=== PATIENT | male | born 1955 | race Caucasian/White ===

== ENCOUNTER 2018-09-12 18:24 | Emergency (ER) | payer OTHER ==
[~2018-09-12] VITALS: Ht 172.7 cm; Wt 80.3 kg
[2018-09-12 18:46] VITALS: BP 140/106
--- NOTE | 2018-09-12 18:52 | NUR ---
Patient ambulated to bed 12. RN evaluating patient at bedside.
[2018-09-12 19:22] LABS: BASOPHILS % (AUTO) 0.7 % (0.0-2.0); EOSINOPHILS # (AUTO) 0.3 K/uL (0-0.4); EOSINOPHILS % (AUTO) 6.7 % (0.0-4.0); HEMOGLOBIN 15.5 g/dL (12.0-18.0); LYMPHOCYTES # (AUTO) 1.9 K/uL (2.0-11.5); LYMPHOCYTES % (AUTO) 38.5 % (20.5-51.1); MEAN CORPUSCULAR HEMOGLOBIN 32 pg (27-31); MEAN CORPUSCULAR HGB CONC 35 g/dL (33-37); MEAN CORPUSCULAR VOLUME 91.4 fL (80-94); MONOCYTES # (AUTO) 0.5 K/uL (0.8-1.0); MONOCYTES % (AUTO) 9.9 % (1.7-9.3); NEUTROPHILS # (AUTO) 2.2 K/uL (1.8-7.7); NEUTROPHILS % (AUTO) 44.2 % (42.2-75.2); PLATELET COUNT (AUTO) 158 K/uL (140-450); RED BLOOD CELL COUNT(AUTO) 4.92 MIL/uL (4.20-6.10); RED CELL DISTRIBUTION WIDTH 13.1 % (11.6-13.7)
--- NOTE | 2018-09-12 19:34 | NUR ---
PATIENT PRESENTS TO ED WITH C/O ESCALONA AND DIZZINESS X 1 WEEK. PATIENT STATES HE TOOK HIS BP AT HOME, SAW THAT IT WAS HIGH 160'S SBP, AND TOOK FAMILY'S HBP MEDICATION. PATIENT BP NOW IS 132/95. PATIENT TOOK NORVASC 5MG AND HCTZ 25MG. PATIENT BP IS MUCH IMPROVED, PATIENT STATES ESCALONA IS 3/10 NOW WAS 10/10 AT HOME . PT DENIES N/V/D; SKIN IS PINK/WARM/DRY; AAOX4 WITH EVEN AND STEADY GAIT; LUNGS CLEAR BL; HR EVEN AND REGULAR; PT DENIES ANY FEVER, CP, SOB, OR COUGH AT THIS TIME; PATIENT STATES PAIN OF 3/10 AT THIS TIME; VSS; PATIENT POSITIONED FOR COMFORT; HOB ELEVATED; BEDRAILS UP X2; BED DOWN. ER MD MADE AWARE OF PT STATUS.
[2018-09-12] MEDS ORDERED: KETOROLAC 30 MG/ML VIAL IVP ONE (19:35)
[2018-09-12] MEDS ORDERED: PROCHLORPERAZINE 10 MG/2 ML VIAL IVP ONE (19:35)
[2018-09-12] MEDS ORDERED: NACL 0.9% 1,000 ML IV ONE (19:35)
[2018-09-12] MEDS ORDERED: KETOROLAC 15 MG/ML VIAL IVP ONE (19:35)
[2018-09-12 19:36] LABS: ANION GAP 10.9 (8-16); CARBON DIOXIDE 26.7 mmol/L (21-32); CREATININE 0.9 mg/dL (0.7-1.3); POTASSIUM 3.6 mmol/L (3.5-5.1)
[2018-09-12 19:40] LABS: PROTHROMBIN TIME 9.2 secs (10.8-13.4)
[2018-09-12 19:43] LABS: TOTAL BILIRUBIN 0.6 mg/dL (0.0-1.0)
[2018-09-12] MEDS ORDERED: ASPIRIN 81 MG TAB.CHEW PO ONE (19:55)
--- NOTE | 2018-09-12 20:25 | NUR ---
PATIENT EXPRESSES HE DOES NOTE WANT TO BE ADMITTED, DR SALAS MADE AWARE, WILL TALK TO PATIENT ABOUT RISK ABOUT LEAVING AMA
[2018-09-12 20:34] LABS: APPEARANCE,URINE CLEAR (CLEAR); BILIRUBIN,URINE NEGATIVE (NEGATIVE); BLOOD, URINE NEGATIVE (NEGATIVE); COLOR,URINE YELLOW (YELLOW); LEUKOCYTE ESTERASE ,URINE NEGATIVE (NEGATIVE); NITRITE, URINE NEGATIVE (NEGATIVE); UGLUCOSE NEGATIVE (NEGATIVE)
--- NOTE | 2018-09-12 20:34 | NUR ---
DR SALAS AT BEDSIDE CONSULTING PATIENT REGARDING RISKE OF LEAVING AMA
--- NOTE | 2018-09-12 20:47 | NUR ---
IV removed, catheter intact and site benign. Applied folded 4x4 gauze and tape to stop bleeding.
[2018-09-12 20:48] VITALS: BP 151/91
--- NOTE | 2018-09-12 20:48 | NUR ---
Patient does not wish to proceed with medical care recommended by DR SALAS. Patient given information related to possible complications, up to and including , which could occur as a result of leaving hospital at this time. Patient verbalizes understanding of risks involved leaving against medical advice. Patient has signed AMA form.
--- NOTE | 2018-09-12 20:48 | NUR ---
Patient discharged with v/s stable. Written and verbal after care instructions given and explained. Patient alert, oriented and verbalized understanding of instructions. Ambulatory with steady gait. All questions addressed prior to discharge. ID band removed. Patient advised to follow up with PMD. Rx of NORVASC given. Patient educated on indication of medication including possible reaction and side effects. Opportunity to ask questions provided and answered.
== END 2018-09-12 20:48 | disposition left against medical advice (07) ==
LOC: MED 18:24
DX: R51 Headache (principal); I10 Essential (primary) hypertension; R94.31 Abnormal electrocardiogram [ECG] [EKG]
CPT/HCPCS: 36415; 71045; 80053; 81003; 84484; 85025; 85379; 85610; 93005; 96361; 96374; 96375; 99284; J0780; J1885; J7030; Q0092

== ENCOUNTER 2020-04-03 10:27 | Emergency (ER) | payer OTHER ==
[~2020-04-03] VITALS: Ht 175.3 cm; Wt 69.9 kg
[2020-04-03 10:36] VITALS: BP 111/80
--- NOTE | 2020-04-03 10:38 | NUR ---
Patient in tent for covid precautions
--- NOTE | 2020-04-03 11:09 | NUR ---
JU SWABBED AND WALKED TO LAB
[2020-04-03] MEDS ORDERED: COMMUNICATION ORDER MC ONE (11:55)
[2020-04-03] MEDS ORDERED: AZITHROMYCIN 1,000 MG in DEXTROSE 5% 500 ML IV ONE (11:55)
[2020-04-03] MEDS ORDERED: DEXAMETHASONE 10 MG/ML VIAL IVP ONE (11:55)
[2020-04-03] MEDS ORDERED: cefTRIAXone 1,000 MG VIAL ONE (12:12)
[2020-04-03] MEDS ORDERED: AZITHROMYCIN 500 MG INJ VIAL IV ONE (12:37)
[2020-04-03] MEDS ORDERED: NS IV SCH (15:00)
[2020-04-03] MEDS ORDERED: BAMLANIVIMAB IV SCH (15:00)
[2020-04-03 16:13] VITALS: BP 127/81
--- NOTE | 2020-04-03 16:13 | NUR ---
Patient discharged with v/s stable. Written and verbal after care instructions given and explained. Patient alert, oriented and verbalized understanding of instructions. Ambulatory with steady gait. All questions addressed prior to discharge. ID band removed. Patient advised to follow up with PMD. Rx of AZITHROMYCIN, PROMETHAZINE, HYDROXYCHLOROQUINE, VITAMIN D, IVERMECTIN, PREDNISONE given. Patient educated on indication of medication including possible reaction and side effects. Opportunity to ask questions provided and answered.
== END 2020-04-03 16:13 | disposition home or self-care (01) ==
LOC: MED 10:27
DX: U07.1 COVID-19 (principal); J12.82 Pneumonia due to coronavirus disease 2019; I51.9 Heart disease, unspecified
CPT/HCPCS: 36600; 71045; 82803; 87426; 96365; 96366; 96368; 96375; 99284; J0456; J0696; J1100; J7030; J7060; M0239

== ENCOUNTER 2022-11-21 20:29 | Emergency (ER) | payer OTHER, MEDICAID ==
[~2022-11-21] VITALS: Ht 175.3 cm; Wt 72.6 kg
[2022-11-21 21:26] VITALS: BP 165/97; PULSE 85; RESP 16; TEMP 97.8; O2SAT 96
[2022-11-21 22:02] LABS: EOSINOPHILS # (AUTO) 0.2 K/uL (0-0.4)
[2022-11-21 22:05] LABS: BASOPHILS % (AUTO) 0.3 % (0.0-2.0); EOSINOPHILS % (AUTO) 2.5 % (0.0-4.0); HEMOGLOBIN 14.8 g/dL (12.0-18.0); LYMPHOCYTES # (AUTO) 1.2 K/uL (2.0-11.5); LYMPHOCYTES % (AUTO) 14.7 % (20.5-51.1); MEAN CORPUSCULAR HEMOGLOBIN 32 pg (27-31); MEAN CORPUSCULAR HGB CONC 35 g/dL (33-37); MEAN CORPUSCULAR VOLUME 91.7 fL (80-94); MONOCYTES # (AUTO) 0.9 K/uL (0.8-1.0); MONOCYTES % (AUTO) 10.9 % (1.7-9.3); NEUTROPHILS # (AUTO) 6.1 K/uL (1.8-7.7); NEUTROPHILS % (AUTO) 71.6 % (42.2-75.2); PLATELET COUNT (AUTO) 117 K/uL (140-450); RED BLOOD CELL COUNT(AUTO) 4.69 MIL/uL (4.20-6.10); RED CELL DISTRIBUTION WIDTH 13.5 % (11.6-13.7); WHITE BLOOD COUNT (AUTO) 8.5 K/uL (4.8-10.8)
[2022-11-21 22:25] LABS: ALBUMIN 3.4 g/dL (3.4-5.0); ANION GAP 13.2 (8-16); CALCIUM 8.4 mg/dL (8.5-10.1); CARBON DIOXIDE 28.1 mmol/L (21-32); CREATININE 1.3 mg/dL (0.6-1.3); POTASSIUM 4.3 mmol/L (3.5-5.1); TOTAL BILIRUBIN 0.5 mg/dL (0.0-1.0); TOTAL PROTEIN, SERUM 6.6 g/dL (6.4-8.2)
[2022-11-21 22:45] LABS: APPEARANCE,URINE CLEAR (CLEAR); BILIRUBIN,URINE NEGATIVE (NEGATIVE); BLOOD, URINE NEGATIVE (NEGATIVE); COLOR,URINE YELLOW (YELLOW); LEUKOCYTE ESTERASE ,URINE NEGATIVE (NEGATIVE); NITRITE, URINE POSITIVE (NEGATIVE); PROTEIN,URINE NEGATIVE (NEGATIVE); UGLUCOSE NEGATIVE (NEGATIVE); UROBILINOGEN,URINE 0.2 EU/dL (0.2 - 1)
[2022-11-21 22:56] LABS: BACTERIA,URINE 10-30 (MOD) /HPF (None Seen); MUCUS,URINE 1+ /LPF (None Seen); RBC,URINE 0-5 /HPF (0-5); SQUAMOUS EPITHELIAL CELL,UR 0-3 (FEW) /LPF (0-3 (FEW)); WBC,URINE 0-5 /HPF (0-5)
[2022-11-21] MEDS ORDERED: cefTRIAXone 1,000 MG in LIDOCAINE MPF 1% 2.1 ML IM ONE (23:55)
[2022-11-21] MEDS ORDERED: CEPH-588 PO (23:55)
[2022-11-22] MEDS ORDERED: LIDOCAINE MPF 1% 5 ML ONE (00:06)
[2022-11-22] MEDS ORDERED: cefTRIAXone 1,000 MG VIAL ONE (00:06)
[2022-11-22 00:43] VITALS: BP 134/74; PULSE 68; RESP 16; O2SAT 99
== END 2022-11-22 00:43 | disposition home or self-care (01) ==
LOC: MED 20:29
DX: N39.0 Urinary tract infection, site not specified (principal); R33.9 Retention of urine, unspecified; Z79.899 Other long term (current) drug therapy
CPT/HCPCS: 36415; 51702; 80053; 81001; 83690; 85025; 96372; 99284; J0696; J2001

== ENCOUNTER 2022-11-24 03:10 | Emergency (ER) | payer OTHER, MEDICAID ==
[~2022-11-24] VITALS: Ht 172.7 cm; Wt 79.8 kg
[~2022-11-24 03:10] MED LIST: CEPH-588 PO
[2022-11-24 03:18] VITALS: BP 157/99; PULSE 84; RESP 16; TEMP 97.3; O2SAT 97
[2022-11-24 04:56] VITALS: BP 162/94; PULSE 73; RESP 13; O2SAT 94
== END 2022-11-24 06:46 | disposition home or self-care (01) ==
LOC: MED 03:10
DX: R33.9 Retention of urine, unspecified (principal); R35.0 Frequency of micturition; N32.0 Bladder-neck obstruction; N40.0 Benign prostatic hyperplasia without lower urinary tract symptoms; R31.9 Hematuria, unspecified; Z79.899 Other long term (current) drug therapy
CPT/HCPCS: 51702; 99284

== ENCOUNTER 2022-11-28 04:35 | Emergency (ER) | payer OTHER, MEDICAID ==
[~2022-11-28] VITALS: Ht 172.7 cm; Wt 80.3 kg
[2022-11-28 04:36] VITALS: BP 173/115; PULSE 93; RESP 18; TEMP 97.2; O2SAT 95
[2022-11-28 05:10] VITALS: BP 118/92; PULSE 74; RESP 17; O2SAT 97
== END 2022-11-28 05:51 | disposition home or self-care (01) ==
LOC: MED 04:35
DX: R33.9 Retention of urine, unspecified (principal); Z79.899 Other long term (current) drug therapy
CPT/HCPCS: 51702; 99284